=== PATIENT | male | born 1990 | race Caucasian/White ===

== ENCOUNTER 2017-12-25 13:41 | Emergency (ER) | payer BC ==
[2017-12-25] MEDS ORDERED: Sodium Chloride 0.9% 1000 ML 1,000 ML IV STA ×2 (14:15→16:37)
[2017-12-25] MEDS ORDERED: BENADRYL 50 MG/ML IV ONE (14:15)
[2017-12-25] MEDS ORDERED: Zofran 4 MG/2 ML VIAL IV ONE (14:15)
[2017-12-25] MEDS ORDERED: Hydromorphone 1 mg/ml Ampule IV ONE (14:15)
--- NOTE | 2017-12-25 14:22 | ERPHSYRPT ---
- History of Present Illness Time Seen by Provider: 12/25/17 13:45 Historian: patient Patient Subjective Stated Complaint: pt here for n/v. and abd pain since last night, pt has been having this abd off and on for 2 years, and is to have a colonscopy next month Triage Nursing Assessment: pt alert, walked in, resp easy. skin w/d/p, abd soft , tender to cener of abd, no edema Physician History: CC: abd pain Hx: 27 y/o patient of Dr Higuera. He has lower abd pain, severe since early AM. Vomited many times. Mild pink tinged last few times. Mucous stools without blood. He had to leave work at [employer]. Normral urination. No fever or chills. He had prior CT scan in 2014. He is scheduled for colonoscopy per Dr Higuera soon as he has had some issues with bowels of late. Timing/Duration: today Severity of Pain-Max: severe Severity of Pain-Current: severe Allergies/Adverse Reactions: No Known Drug Allergies Allergy (Verified 12/25/17 13:54) Home Medications: Omeprazole [Prilosec] 20 mg DAILY 12/25/17 [History] Hx Tetanus, Diphtheria Vaccination/Date Given: Yes Hx Influenza Vaccination/Date Given: Yes Immunizations Up to Date: Yes - Review of Systems Constitutional: Fatigue, Malaise, Weakness, No Fever, No Chills Eyes: No Symptoms Ears, Nose, & Throat: No Symptoms Respiratory: No Cough, No Dyspnea Cardiac: No Chest Pain Abdominal/Gastrointestinal: Abdominal Pain, Nausea, Vomiting, No Diarrhea, No Constipation Genitourinary Symptoms: No Dysuria Skin: No Rash Neurological: No Headache All Other Systems: Reviewed and Negative - Past Medical History Pertinent Past Medical History: Yes GI Medical History: GERD - Past Surgical History Past Surgical History: Yes Other Surgical History: TONSILS AND ADNOIDS - Social History Smoking Status: Never smoker Exposure to second hand smoke: No Drug Use: none Patient Lives Alone: No - Nursing Vital Signs Nursing Vital Signs: Initial Vital Signs Temperature 97.5 F 12/25/17 13:45 Pulse Rate 120 H 12/25/17 13:45 Respiratory Rate 18 12/25/17 13:45 Blood Pressure 148/89 12/25/17 13:45 O2 Sat by Pulse Oximetry 100 12/25/17 13:45 Pain Scale Pain Intensity 2 - Physical Exam General Appearance: alert Eye Exam: PERRL/EOMI Ears, Nose, Throat Exam: normal ENT inspection, dry mucous membranes Neck Exam: normal inspection, non-tender, supple Respiratory Exam: normal breath sounds, lungs clear Cardiovascular Exam: regular rate/rhythm, No murmur Gastrointestinal/Abdomen Exam: soft, tenderness (diffuse worse in RQL and suprapubic area), guarding, No distention, No mass Male Genitalia Exam: normal genitalia, No hernia, No testicular tenderness Back Exam: normal inspection, normal range of motion Extremity Exam: normal inspection, normal range of motion Neurologic Exam: alert, oriented x 3, cooperative, acid dipper II-XII nml as tested, sensation nml, No motor deficits Skin Exam: warm, dry, No rash SpO2 Interpretation: normal SpO2: 100 Oxygen Delivery: Room Air - Course Nursing assessment & vital signs reviewed: Yes Ordered Tests: Active Orders 24 hr Category Date Time Status Clean Catch Urine Specimen STAT Care 12/25/17 14:15 Active IV Insertion STAT Care 12/25/17 14:15 Active NPO (ED) STAT Care 12/25/17 14:15 Active ABDOMEN AND PELVIS W CONTRAST [CT] Stat Exams 12/25/17 14:15 Completed CBC W DIFF Stat Lab 12/25/17 14:30 Completed CMP Stat Lab 12/25/17 14:30 Completed LIPASE Stat Lab 12/25/17 14:30 Completed Lactic Acid Stat Lab 12/25/17 14:30 Completed Lactic Acid Stat Lab 12/25/17 16:35 Ordered Manual Differential NC Stat Lab 12/25/17 14:30 Completed UA W/RFX UR CULTURE Stat Lab 12/25/17 16:35 Completed Medication Summary Discontinued Medications Generic Name Dose Route Start Last Admin Trade Name Freq PRN Reason Stop Dose Admin Diphenhydramine HCl 25 mg 12/25/17 14:15 12/25/17 14:29 Benadryl 50 Mg/Ml IV 12/25/17 14:16 25 mg STAT ONE Administration Diphenhydramine HCl Confirm 12/25/17 14:27 Benadryl 50 Mg/Ml Administered 12/25/17 14:28 Dose 50 mg .ROUTE .STK-MED ONE Hydromorphone HCl 1 mg 12/25/17 14:15 12/25/17 14:30 Hydromorphone 1 Mg/Ml Ampule IV 12/25/17 14:16 1 mg STAT ONE Administration Hydromorphone HCl Confirm 12/25/17 14:27 Dilaudid 2 Mg Injection Administered 12/25/17 14:28 Dose 2 mg .ROUTE .STK-MED ONE Sodium Chloride 1,000 mls @ 999 mls/hr 12/25/17 14:15 12/25/17 14:29 Sodium Chloride 0.9% 1000 Ml IV 12/25/17 15:15 999 mls/hr .Q1H1M STA Administration Sodium Chloride Confirm 12/25/17 14:28 Sodium Chloride 0.9% 1000 Ml Administered 12/25/17 14:29 Dose 1,000 mls @ ud .ROUTE .STK-MED ONE Sodium Chloride 1,000 mls @ 999 mls/hr 12/25/17 16:37 12/25/17 18:08 Sodium Chloride 0.9% 1000 Ml IV 12/25/17 17:37 999 mls/hr .Q1H1M STA Administration Sodium Chloride Confirm 12/25/17 18:01 Sodium Chloride 0.9% 1000 Ml Administered 12/25/17 18:02 Dose 1,000 mls @ ud .ROUTE .STK-MED ONE Ondansetron HCl 4 mg 12/25/17 14:15 12/25/17 14:29 Zofran 4 Mg/2 Ml Vial IV 12/25/17 14:16 4 mg STAT ONE Administration Ondansetron HCl Confirm 12/25/17 14:27 Zofran 4 Mg/2 Ml Vial Administered 12/25/17 14:28 Dose 4 mg .ROUTE .STK-MED ONE Promethazine HCl 25 mg 12/25/17 16:37 12/25/17 18:08 Phenergan 25 Mg Inj IM 12/25/17 16:38 25 mg STAT ONE Administration Promethazine HCl Confirm 12/25/17 18:00 Phenergan 25 Mg Inj Administered 12/25/17 18:01 Dose 25 mg .ROUTE .STK-MED ONE Lab/Rad Data: Laboratory Result Diagrams 12/25/17 14:30 12/25/17 14:30 Laboratory Results 12/25/17 12/25/17 12/25/17 Range/Units 16:35 14:30 14:30 WBC (4.0-10.5) K/mm3 RBC (4.1-5.6) M/mm3 Hgb (12.5-18.0) gm/dl Hct (42-50) % MCV (78-100) fl MCH (26-32) pg MCHC (32-36) g/dl RDW (11.5-14.0) % Plt Count (150-450) K/mm3 MPV (6-9.5) fl Absolute Granulocytes (1.4-6.9) Segmented Neutrophils (36.-66.) % Band Neutrophils (0.0-2.0) % Lymphocytes (Manual) (24-44) % Monocytes (Manual) (0.0-12.0) % Differential Comment Platelet Estimate (NORMAL) Sodium 140 (137-145) mmol/L Potassium 3.7 (3.5-5.1) mmol/L Chloride 104 (98-107) mmol/L Carbon Dioxide 23 (22-30) mmol/L Anion Gap 16.0 H (5-15) MEQ/L BUN 20 (9-20) mg/dL Creatinine 0.93 (0.66-1.25) mg/dL Estimated GFR > 60.0 ML/MIN Glucose 111 H (74-106) mg/dL Lactic Acid 2.0 (0.4-2.0) Calcium 9.6 (8.4-10.2) mg/dL Total Bilirubin 0.90 (0.2-1.3) mg/dL AST 35 (17-59) U/L ALT 38 (0-50) U/L Alkaline Phosphatase 57 (38-126) U/L Serum Total Protein 7.5 (6.3-8.2) g/dL Albumin 4.6 (3.5-5.0) g/dL Lipase 126 (23-300) U/L Ur Collection Type CCMS Urine Color YELLOW (YELLOW) Urine Appearance CLEAR (CLEAR) Urine pH 8.0 (5-6) Ur Specific [place] 1.005 (1.005-1.025) Urine Protein NEGATIVE (Negative) Urine Ketones NEGATIVE (NEGATIVE) Urine Blood NEGATIVE (0-5) Khari/ul Urine Nitrite NEGATIVE (NEGATIVE) Urine Bilirubin NEGATIVE (NEGATIVE) Urine Urobilinogen NORMAL (0-1) mg/dL Ur Leukocyte Esterase NEGATIVE (NEGATIVE) Urine Culture Reflexed NO (NO) Urine Glucose NEGATIVE (NEGATIVE) mg/dL Specimen Received 12-25-17 1640 12/25/17 Range/Units 14:30 WBC 11.4 H (4.0-10.5) K/mm3 RBC 5.62 H (4.1-5.6) M/mm3 Hgb 15.6 (12.5-18.0) gm/dl Hct 44.9 (42-50) % MCV 79.9 (78-100) fl MCH 27.7 (26-32) pg MCHC 34.7 (32-36) g/dl RDW 13.2 (11.5-14.0) % Plt Count 246 (150-450) K/mm3 MPV 10.9 H (6-9.5) fl Absolute Granulocytes 10.63 H (1.4-6.9) Segmented Neutrophils 93 H (36.-66.) % Band Neutrophils 1 (0.0-2.0) % Lymphocytes (Manual) 2 L (24-44) % Monocytes (Manual) 4 (0.0-12.0) % Differential Comment NORMAL Platelet Estimate NORMAL (NORMAL) Sodium (137-145) mmol/L Potassium (3.5-5.1) mmol/L Chloride (98-107) mmol/L Carbon Dioxide (22-30) mmol/L Anion Gap (5-15) MEQ/L BUN (9-20) mg/dL Creatinine (0.66-1.25) mg/dL Estimated GFR ML/MIN Glucose (74-106) mg/dL Lactic Acid (0.4-2.0) Calcium (8.4-10.2) mg/dL Total Bilirubin (0.2-1.3) mg/dL AST (17-59) U/L ALT (0-50) U/L Alkaline Phosphatase (38-126) U/L Serum Total Protein (6.3-8.2) g/dL Albumin (3.5-5.0) g/dL Lipase (23-300) U/L Ur Collection Type Urine Color (YELLOW) Urine Appearance (CLEAR) Urine pH (5-6) Ur Specific [place] (1.005-1.025) Urine Protein (Negative) Urine Ketones (NEGATIVE) Urine Blood (0-5) Khari/ul Urine Nitrite (NEGATIVE) Urine Bilirubin (NEGATIVE) Urine Urobilinogen (0-1) mg/dL Ur Leukocyte Esterase (NEGATIVE) Urine Culture Reflexed (NO) Urine Glucose (NEGATIVE) mg/dL Specimen Received - Progress Progress Note: 12/25/17 16:38 CT abd/pelvis: Several images through the abdomen moderately degraded by respiration artifact. Noncontrasted stomach and bowel loops appear nonobstructed. Normal appendix. No free fluid/ air. 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 Remaining liver, gallbladder, pancreas, spleen , adrenal glands, kidneys, ureters, bladder, and aorta appear unremarkable. No pathologic retroperitoneal lymphadenopathy. He had meds and IVF. Still tachy and nauseated. Will try phenergan which he tolerated well in the past with addl IVF. UA pending. 12/25/17 19:09 HR better after 2 L IVF. and son now have same symptoms. He wants to go home. Rx phenergan. Instr given. Counseled pt/family regarding: lab results, diagnosis, need for follow-up, rad results - Departure Time of Disposition: 19:10 Departure Disposition: Home Clinical Impression: Vomiting, Abdominal pain Condition: Stable Critical Care Time: No Referrals: ALEXA HIGUERA [Primary Care Provider] - Instructions: Acute Abdomen (Belly Pain), Adult (DC), Nausea and Vomiting, Adult (DC) Additional Instructions: ABDOMINAL PAIN 1. There are several different causes for abdominal pain, some of which may not be able to be identified on initial examination. 2. The important thing to remember is that bodily functions can change in a short period of time. If you notice any of the following symptoms, return to the emergency department or consult your doctor immediately: A. Worsening pain or no improvement in the next 12 hours. B. Increasing, severe abdominal pain C. Blood in stool D. Black stools E. Persistent vomiting F. Fever or chills or other symptoms Rx phenergan tabs if needed for nausea. No driving tonite or while taking phenergan. Off work tomorrow. Follow up with Dr Higuera or return for worsening pain, passing blood or concerns. Prescriptions: Promethazine HCl 25 mg [Phenergan 25 mg] 25 mg PO Q6H PRN PRN #10 tablet PRN Reason: Nausea/Vomiting
[2017-12-25] MEDS ORDERED: DILAUDID 2 MG INJECTION ONE (14:27)
[2017-12-25] MEDS ORDERED: Zofran 4 MG/2 ML VIAL ONE (14:27)
[2017-12-25] MEDS ORDERED: BENADRYL 50 MG/ML ONE (14:27)
[2017-12-25] MEDS ORDERED: Sodium Chloride 0.9% 1000 ML 1,000 ML ONE ×2 (14:28→18:01)
[2017-12-25 14:31] LABS: Granulocyte Absolute (ANC) 10.63 (1.4-6.9); Hematocrit 44.9 % (42-50); Hemoglobin 15.6 gm/dl (12.5-18.0); Mean Cell Volume 79.9 fl (78-100); Mean Corpuscular Hgb Concent. 34.7 g/dl (32-36); Mean Platelet Volume 10.9 fl (6-9.5); Platelet Count 246 K/mm3 (150-450); Red Blood Count 5.62 M/mm3 (4.1-5.6); Red Cell Distribution Width 13.2 % (11.5-14.0); White Blood Count 11.4 K/mm3 (4.0-10.5)
[2017-12-25 14:33] LABS: Mean Corpuscular Hemoglobin 27.7 pg (26-32)
--- NOTE | 2017-12-25 14:53 | XRAY ---
Indication: Nausea, vomiting, and right lower abdominal tenderness. Multiple contiguous axial images obtained through the abdomen and pelvis using 80 cc Isovue 370 contrast only. Comparison: August 26, 2015. Lung bases remain clear. Heart is not enlarged. Several images through the abdomen moderately degraded by respiration artifact. Noncontrasted stomach and bowel loops appear nonobstructed. Normal appendix. No free fluid/air. 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 Remaining liver, gallbladder, pancreas, spleen, adrenal glands, kidneys, ureters, bladder, and aorta appear unremarkable. No pathologic retroperitoneal lymphadenopathy. Osseous structures intact. Impression: 1. Respiration artifact. 2. CT abdomen/pelvis with and without contrast exam again grossly negative. CT DI 20.93
[2017-12-25 14:56] LABS: ALBUMIN 4.6 g/dL (3.5-5.0); ALKALINE PHOSPHATASE 57 U/L (38-126); BLOOD UREA NITROGEN 20 mg/dL (9-20); CHLORIDE 104 mmol/L (98-107); Calcium 9.6 mg/dL (8.4-10.2); Carbon Dioxide 23 mmol/L (22-30); Creatinine 1 0.93 mg/dL (0.66-1.25); Glucose 111 mg/dL (74-106); LIPASE 126 U/L (23-300); Potassium 3.7 mmol/L (3.5-5.1); SGOT/AST 35 U/L (17-59); SGPT/ALT 38 U/L (0-50); SODIUM 140 mmol/L (137-145); Total Protein 7.5 g/dL (6.3-8.2)
[2017-12-25 15:49] LABS: BAND 1 % (0.0-2.0); Lymphocytes 2 % (24-44); Monocyte 4 % (0.0-12.0); Neutrophils 93 % (36.-66.); Total Cells Counted 100
[2017-12-25 15:51] LABS: Platelet Estimate NORMAL (NORMAL)
[2017-12-25] MEDS ORDERED: Phenergan 25 MG INJ IM ONE (16:37)
[2017-12-25 16:43] LABS: Appearance CLEAR (CLEAR); Bilirubin NEGATIVE (NEGATIVE); Blood NEGATIVE Ery/ul (0-5); Glucose NEGATIVE (NEGATIVE); Ketones NEGATIVE (NEGATIVE); Leukocyte Esterase NEGATIVE (NEGATIVE); Nitrite NEGATIVE (NEGATIVE); Protein,Urine Dip NEGATIVE (Negative); Specific Gravity 1.005 (1.005-1.025); Urobilinogen NORMAL mg/dL (0-1)
[2017-12-25] MEDS ORDERED: Phenergan 25 MG INJ ONE (18:00)
[2017-12-25 18:56] VITALS: BP 121/73; PULSE 110; O2SAT 100
== END 2017-12-25 19:21 | disposition home or self-care (01) ==
LOC: ED 13:41
DX: R10.30 Lower abdominal pain, unspecified (principal); R11.10 Vomiting, unspecified
CPT/HCPCS: 36000; 36415; 74177; 80053; 81002; 83605; 83690; 85025; 96360; 96361; 96372; 96374; 96375; 99283; 99284; J1170; J1200; J2405; J2550

== ENCOUNTER 2024-12-26 19:45 | Emergency (ER) | payer BC, OTHER ==
[2024-12-26 20:00] VITALS: RESP 16; TEMP 96.9; O2SAT 99
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
[2024-12-26 21:49] VITALS: BP 117/79; PULSE 85
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
== END 2024-12-26 21:50 | disposition home or self-care (01) ==
LOC: ED 19:45
DX: S00.83XA Contusion of other part of head, initial encounter (principal); Y04.2XXA Assault by strike against or bumped into by another person, initial encounter; Y92.149 Unspecified place in prison as the place of occurrence of the external cause; Y99.0 Civilian activity done for income or pay; R42 Dizziness and giddiness; I10 Essential (primary) hypertension; Z79.899 Other long term (current) drug therapy
CPT/HCPCS: 70450; 99283; 99284